=== PATIENT | male | born 1975 | race Caucasian/White ===

== ENCOUNTER 2020-04-23 01:27 | Emergency (ER) | payer MEDICAID ==
[~2020-04-23] VITALS: Ht 180.3 cm; Wt 63.5 kg
[2020-04-23 01:43] VITALS: BP 110/72
--- NOTE | 2020-04-23 02:09 | NUR ---
PT WAS TAKEN TO THE CT
== END 2020-04-23 02:37 | disposition home or self-care (01) ==
LOC: ER 01:27
DX: S09.90XA Unspecified injury of head, initial encounter (principal); J45.909 Unspecified asthma, uncomplicated; F20.9 Schizophrenia, unspecified; F17.200 Nicotine dependence, unspecified, uncomplicated; Z59.0 Homelessness; W18.39XA Other fall on same level, initial encounter; Y93.89 Activity, other specified; Y92.89 Other specified places as the place of occurrence of the external cause; Y99.8 Other external cause status
CPT/HCPCS: 70450-TC

== ENCOUNTER 2021-09-29 23:36 | Emergency (ER) | payer MEDICAID ==
[~2021-09-29] VITALS: Ht 180.3 cm; Wt 72.6 kg
[2021-09-29 23:42] VITALS: BP 112/86
--- NOTE | 2021-09-30 00:16 | NUR ---
PLASTIC MAKER AT PT'S BEDSIDE
--- NOTE | 2021-09-30 00:34 | NUR ---
Patient discharged to home in stable condition. Written and verbal after care instructions given. Patient verbalizes understanding of instruction. Pt ambulatory with a steady gait
== END 2021-09-30 00:35 | disposition home or self-care (01) ==
LOC: ER 23:46
DX: F15.10 Other stimulant abuse, uncomplicated (principal); J45.909 Unspecified asthma, uncomplicated; F20.9 Schizophrenia, unspecified; Z59.00 Homelessness unspecified
CPT/HCPCS: 71045-TC

== ENCOUNTER 2021-11-03 01:47 | Emergency (ER) | payer MEDICAID, OTHER ==
[~2021-11-03] VITALS: Ht 170.2 cm; Wt 70.3 kg
[2021-11-03 01:49] VITALS: BP 125/70
== END 2021-11-03 01:59 | disposition home or self-care (01) ==
LOC: ER 01:51
DX: F15.10 Other stimulant abuse, uncomplicated (principal); Z76.5 Malingerer [conscious simulation]; J45.909 Unspecified asthma, uncomplicated; F17.200 Nicotine dependence, unspecified, uncomplicated; Z59.00 Homelessness unspecified